=== PATIENT | female | born 1950 | race Caucasian/White ===

== ENCOUNTER → 2017-09-29 | Outpatient (CLI) | payer MEDICARE, OTHER ==
[~2017-09-29] MED LIST: AMIO200T42 PO; AMLO5TAB2 PO; ASPI-515 PO; ATOR40TA78 PO; BISA10SU65 PR; CHOL40002 PO; DICLOFENAC SODIUM; DULO30CA2 PO; HEPA50002 SQ; HYDR-3245 PO; HYDR-3307 PO; INSU100I18 SQ-INSULIN; KETOCONAZOLE TP; LEVO150T5 PO; LEVO175T5 PO; LISI40TA PO; MAGNESIUM PO; METF500T4 PO; METH4TAB7 PO; METH750T2 PO; OMEG1CAP23 PO; OMEP40CA6 PO; ONDA4VIA4 PO; POLY17PO5 PO; SENN1TAB7 PO; SIME125T10 PO; SODI1TAB PO; STOOL SOFTENER PO; TEMA15CA6 PO; TRIAMCINOLONE TP; VIT1CAPS11 PO; VITA PULSE PO
== END | disposition home or self-care (01) ==
LOC: CVU 06:58
PROVIDERS: ATTEND Internal Medicine
DX: M25.561 Pain in right knee (principal); M25.562 Pain in left knee; I10 Essential (primary) hypertension; I48.91 Unspecified atrial fibrillation; E11.40 Type 2 diabetes mellitus with diabetic neuropathy, unspecified; I73.00 Raynaud's syndrome without gangrene
CPT/HCPCS: 93922

== ENCOUNTER 2018-02-14 11:46 | Emergency (ER) | payer MEDICARE, OTHER ==
[~2018-02-14] VITALS: Ht 157.5 cm; Wt 59.0 kg
[~2018-02-14 11:46] MED LIST changes: -METF500T4 PO; +METF500T5 PO
[2018-02-14 12:47] LABS: BASOPHILS # (AUTO) 0.03 x10^3/uL (0-0.1); BASOPHILS % (AUTO) 0 % (0-1); EOSINOPHILS # (AUTO) 0.27 x10^3/uL (0-0.4); EOSINOPHILS % (AUTO) 4 % (1-7); LYMPHOCYTES # (AUTO) 0.85 x10^3/uL (1-3.4); LYMPHOCYTES % (AUTO) 13 % (22-44); MD NO; MEAN CORPUSCULAR HEMOGLOBIN 30.9 pg (27.0-34.8); MEAN CORPUSCULAR HGB CONC 32.9 g/dL (32.4-35.8); MEAN CORPUSCULAR VOLUME 93.9 fL (80-100); MEAN PLATELET VOLUME 8.1 fL (7.4-10.4); MONOCYTES # (AUTO) 0.93 x10^3/uL (0.2-0.8); MONOCYTES % (AUTO) 14 % (2-9); NEUTROPHILS # (AUTO) 4.41 x10^3/uL (1.8-6.8); NEUTROPHILS % (AUTO) 68 % (42-75); PLATELET COUNT 299 x10^3/uL (130-400); RED CELL DISTRIBUTION WIDTH 15.6 % (9.6-15.2)
[2018-02-14 12:59] LABS: ALANINE AMINOTRANSFERASE 25 U/L (12-78); ALBUMIN 2.9 g/dL (3.4-5.0); ANION GAP 6 mmol/L (5-15); CALCIUM 8.9 mg/dL (8.5-10.1); CHLORIDE 107 mmol/L (98-107); CREATININE 0.64 mg/dL (0.55-1.02)
[2018-02-14 13:02] VITALS: BP 160/84
[2018-02-14 13:04] LABS: ALKALINE PHOSPHATASE 75 U/L (45-117); BILIRUBIN,TOTAL 0.5 mg/dL (0.2-1.0); TOTAL PROTEIN 7.9 g/dL (6.4-8.2); TROPONIN I 0.044 ng/mL (0.000-0.045)
== END 2018-02-14 15:11 | disposition home or self-care (01) ==
LOC: ED 15:00
DX: I10 Essential (primary) hypertension (principal); E11.40 Type 2 diabetes mellitus with diabetic neuropathy, unspecified; E03.9 Hypothyroidism, unspecified
CPT/HCPCS: 36415; 71045; 80053; 83880; 84484; 85025; 93005; 99285

== ENCOUNTER → 2018-02-23 | Outpatient (CLI) | payer MEDICARE, OTHER | END | disposition home or self-care (01) | LOC: WOUND 10:08 | PROVIDERS: ATTEND Family Medicine | DX: L02.416 Cutaneous abscess of left lower limb (principal); I10 Essential (primary) hypertension; M32.9 Systemic lupus erythematosus, unspecified; E78.5 Hyperlipidemia, unspecified; E03.9 Hypothyroidism, unspecified; E11.40 Type 2 diabetes mellitus with diabetic neuropathy, unspecified; Z87.891 Personal history of nicotine dependence | CPT/HCPCS: 10061; G0463; WOU0463 ==

== ENCOUNTER → 2018-03-30 | Outpatient (CLI) | payer MEDICARE, OTHER | END | disposition home or self-care (01) | LOC: WOUND 08:52 | PROVIDERS: ATTEND Family Medicine | DX: L02.416 Cutaneous abscess of left lower limb (principal); E11.42 Type 2 diabetes mellitus with diabetic polyneuropathy; E87.1 Hypo-osmolality and hyponatremia; E78.5 Hyperlipidemia, unspecified; E03.9 Hypothyroidism, unspecified; I10 Essential (primary) hypertension; M32.9 Systemic lupus erythematosus, unspecified; I73.00 Raynaud's syndrome without gangrene; Z87.891 Personal history of nicotine dependence | CPT/HCPCS: G0463; WOU0463 ==

== ENCOUNTER → 2018-03-30 | Outpatient (CLI) | payer MEDICARE, OTHER | END | disposition home or self-care (01) | LOC: CFH 13:14 | PROVIDERS: ATTEND Internal Medicine | DX: R60.9 Edema, unspecified (principal) | CPT/HCPCS: 76536 ==

== ENCOUNTER → 2018-04-03 | Outpatient (CLI) | payer MEDICARE, OTHER | END | disposition home or self-care (01) | LOC: WOUND 08:00 | PROVIDERS: ATTEND Nurse Practitioner Family | DX: L02.416 Cutaneous abscess of left lower limb (principal); E11.8 Type 2 diabetes mellitus with unspecified complications; E11.42 Type 2 diabetes mellitus with diabetic polyneuropathy; E87.1 Hypo-osmolality and hyponatremia; E03.9 Hypothyroidism, unspecified; E87.5 Hyperkalemia; I10 Essential (primary) hypertension; M32.9 Systemic lupus erythematosus, unspecified; I73.00 Raynaud's syndrome without gangrene; Z87.891 Personal history of nicotine dependence | CPT/HCPCS: G0463; WOU0463 ==

== ENCOUNTER → 2018-04-13 | Outpatient (CLI) | payer MEDICARE, OTHER ==
[~2018-04-13] MED LIST changes: -AMLO5TAB2 PO; +AMLO5TAB7 PO; +METF500T17 PO; -METF500T5 PO; -ONDA4VIA4 PO; +ONDA4VIA8 PO; -SENN1TAB7 PO; +SENN1TAB8 PO
== END | disposition home or self-care (01) ==
LOC: CFH 13:37
PROVIDERS: ATTEND Internal Medicine Cardiovascular Disease
DX: I08.3 Combined rheumatic disorders of mitral, aortic and tricuspid valves (principal); I11.9 Hypertensive heart disease without heart failure; E11.9 Type 2 diabetes mellitus without complications; E78.5 Hyperlipidemia, unspecified; Z87.891 Personal history of nicotine dependence
CPT/HCPCS: 93306

== ENCOUNTER 2018-04-15 07:35 | Inpatient (IN) | payer MEDICARE, OTHER ==
[~2018-04-15] VITALS: Ht 154.9 cm; Wt 66.5 kg
[2018-04-15] MEDS ORDERED: ONDANSETRON ODT 4 MG PO ONE (09:00)
[2018-04-15] MEDS ORDERED: SODIUM CHLORIDE FLUSH 10ML SYR IVF ONE ×2 (09:00→13:00)
[2018-04-15] MEDS ORDERED: ONDANSETRON ODT 4 MG ONE (09:02)
[2018-04-15 09:45] LABS: MEAN CORPUSCULAR HEMOGLOBIN 30.5 pg (27.0-34.8); MEAN CORPUSCULAR HGB CONC 33.4 g/dL (32.4-35.8); MEAN CORPUSCULAR VOLUME 91.2 fL (80-100); MEAN PLATELET VOLUME 8.6 fL (7.4-10.4); PLATELET COUNT 128 x10^3/uL (130-400); RED BLOOD COUNT 4.03 x10^6/uL (3.82-5.3); RED CELL DISTRIBUTION WIDTH 15.8 % (9.6-15.2)
[2018-04-15 09:55] LABS: MICROSCOPIC INDICATED
[2018-04-15 09:57] LABS: ALANINE AMINOTRANSFERASE 10 U/L (12-78); ALBUMIN 2.9 g/dL (3.4-5.0); ANION GAP 8 mmol/L (5-15); CALCIUM 8.6 mg/dL (8.5-10.1); CHLORIDE 101 mmol/L (98-107); CREATININE 1.31 mg/dL (0.55-1.02)
[2018-04-15 10:00] LABS: ALKALINE PHOSPHATASE 86 U/L (45-117); BILIRUBIN,TOTAL 0.8 mg/dL (0.2-1.0); TOTAL PROTEIN 7.1 g/dL (6.4-8.2)
[2018-04-15 10:06] LABS: BASOPHILS # (AUTO) 0.02 x10^3/uL (0-0.1); BASOPHILS % (AUTO) 0 % (0-1); EOSINOPHILS % (AUTO) 1 % (1-7); LYMPHOCYTES # (AUTO) 0.81 x10^3/uL (1-3.4); LYMPHOCYTES % (AUTO) 8 % (22-44); MD SCAN; MONOCYTES # (AUTO) 1.46 x10^3/uL (0.2-0.8); MONOCYTES % (AUTO) 15 % (2-9); NEUTROPHILS # (AUTO) 7.37 x10^3/uL (1.8-6.8); NEUTROPHILS % (AUTO) 76 % (42-75)
[2018-04-15 10:10] LABS: CULTURE INDICATED? YES
[2018-04-15] MEDS ORDERED: OMNIPAQUE 350 MG/ML, 100ML BOTTLE ONE (12:25)
[2018-04-15] MEDS ORDERED: CEFOTETAN PMX 1GM/50ML 50 ML ONE (12:56)
[2018-04-15] MEDS ORDERED: CEFOTETAN PMX 1GM/50ML 50 ML IV ONE (13:00)
[2018-04-15] MEDS ORDERED: SODIUM CHLORIDE 0.9% 1,000ML IVBOLUS ONE (13:00)
[2018-04-15] MEDS ORDERED: METRONIDAZOLE PMX 500MG/100ML 100 ML IV ONE (13:00)
[2018-04-15] MEDS ORDERED: GLUCAGON 1 MG IM PRN (14:00)
[2018-04-15] MEDS ORDERED: POLYETHYLENE GLYCOL 17 GM PACKET PO PRN (14:00)
[2018-04-15] MEDS ORDERED: PHARMACY MAY ADJ FOR RENAL FX MC PRN (14:00)
[2018-04-15] MEDS ORDERED: BISACODYL 10 MG SUPP PR PRN (14:00)
[2018-04-15] MEDS ORDERED: ONDANSETRON 2MG/ML, 2ML IVPush PRN (14:00)
[2018-04-15] MEDS ORDERED: DEXTROSE 50%, 50ML SYRINGE IVPush PRN (14:00)
[2018-04-15] MEDS ORDERED: DEXTROSE 4 GM TAB.CHEW PO PRN (14:00)
[2018-04-15] MEDS ORDERED: ACETAMINOPHEN 325 MG TABLET PO PRN (14:00)
[2018-04-15] MEDS ORDERED: DOCUSATE 100 MG CAPSULE PO PRN (14:00)
[2018-04-15] MEDS ORDERED: morphine SULFATE 10 MG/ML, 1ML IVPush PRN (14:00)
[2018-04-15 14:17] VITALS: BP 183/96
[2018-04-15] MEDS: hydrALAzine 20 MG/ML, 1ML IVPush PRN (14:39)
[2018-04-15] MEDS: METRONIDAZOLE PMX 500MG/100ML 100 ML IV SCH ×2 (14:40→22:17)
[2018-04-15] MEDS: SODIUM CHLORIDE 0.9% 1,000 ML IV SCH ×2 (14:40→22:17)
[2018-04-15] MEDS: HEPARIN 5,000 UNITS/ML, 1ML SQ SCH ×2 (14:53→22:17)
[2018-04-15 16:00] VITALS: BP 158/93
[2018-04-15] MEDS: INSULIN LISPRO 100 UNITS/ML, PEN SQ-INSULIN SCH ×2 (16:00→20:19)
[2018-04-15] MEDS: CEFOTETAN PMX 2GM/50ML 50 ML IV SCH (17:33)
[2018-04-15] MEDS: HYDROcodone/APAP 5/325 TABLET PO PRN (19:17)
[2018-04-15 20:00] VITALS: BP 183/99
[2018-04-15] MEDS: ATORVASTATIN 40 MG TABLET PO SCH (20:18)
[2018-04-15] MEDS: ONDANSETRON ODT 4 MG PO PRN (20:18)
[2018-04-15] MEDS: SODIUM CHLORIDE FLUSH 10ML SYR IVF SCH (20:19)
[2018-04-15 22:18] VITALS: BP 158/86
[2018-04-15 23:14] LABS: CLOSTRIDIUM DIFFICILE TOXIN NEGATIVE (Negative)
[2018-04-15 23:15] LABS: CLOSTRIDIUM DIFFICILE ANTIGEN POSITIVE
[2018-04-16] VITALS (7 sets, daily range): BP systolic 149–177; BP diastolic 75–100
[2018-04-16] MEDS: CEFOTETAN PMX 2GM/50ML 50 ML IV SCH ×2 (05:03→17:10)
[2018-04-16 05:09] LABS: ALBUMIN 2.5 g/dL (3.4-5.0); ANION GAP 7 mmol/L (5-15); CALCIUM 7.7 mg/dL (8.5-10.1); CHLORIDE 105 mmol/L (98-107)
[2018-04-16 05:14] LABS: ALANINE AMINOTRANSFERASE 9 U/L (12-78); ALKALINE PHOSPHATASE 74 U/L (45-117); BILIRUBIN,TOTAL 0.6 mg/dL (0.2-1.0); TOTAL PROTEIN 6.1 g/dL (6.4-8.2)
[2018-04-16] MEDS: METRONIDAZOLE PMX 500MG/100ML 100 ML IV SCH ×3 (05:52→21:02)
[2018-04-16] MEDS: HEPARIN 5,000 UNITS/ML, 1ML SQ SCH ×3 (05:52→22:00)
[2018-04-16] MEDS ORDERED: LEVOTHYROXINE 125 MCG TABLET PO SCH (06:00)
[2018-04-16 06:05] LABS: MEAN CORPUSCULAR HEMOGLOBIN 30.8 pg (27.0-34.8); MEAN CORPUSCULAR HGB CONC 33.9 g/dL (32.4-35.8); MEAN CORPUSCULAR VOLUME 90.7 fL (80-100); MEAN PLATELET VOLUME 8.8 fL (7.4-10.4); PLATELET COUNT 99 x10^3/uL (130-400); RED CELL DISTRIBUTION WIDTH 16.5 % (9.6-15.2)
[2018-04-16 06:06] LABS: BASOPHILS # (AUTO) 0.02 x10^3/uL (0-0.1); BASOPHILS % (AUTO) 0 % (0-1); EOSINOPHILS # (AUTO) 0.36 x10^3/uL (0-0.4); EOSINOPHILS % (AUTO) 4 % (1-7); LYMPHOCYTES # (AUTO) 0.31 x10^3/uL (1-3.4); LYMPHOCYTES % (AUTO) 4 % (22-44); MD SCAN; MONOCYTES # (AUTO) 1.03 x10^3/uL (0.2-0.8); MONOCYTES % (AUTO) 13 % (2-9); NEUTROPHILS # (AUTO) 6.49 x10^3/uL (1.8-6.8); NEUTROPHILS % (AUTO) 79 % (42-75)
[2018-04-16] MEDS: INSULIN LISPRO 100 UNITS/ML, PEN SQ-INSULIN SCH ×3 (07:28→16:00)
[2018-04-16] MEDS: AMLODIPINE 5 MG TABLET PO SCH (07:34)
[2018-04-16] MEDS: SODIUM CHLORIDE 0.9% 1,000 ML IV SCH ×2 (07:34→19:27)
[2018-04-16] MEDS: hydrALAzine 20 MG/ML, 1ML IVPush PRN (07:34)
[2018-04-16] MEDS: SODIUM CHLORIDE FLUSH 10ML SYR IVF SCH ×2 (08:29→19:28)
[2018-04-16] MEDS ORDERED: AMLODIPINE 5 MG TABLET PO SCH (09:00)
[2018-04-16] MEDS: HYDROcodone/APAP 5/325 TABLET PO PRN ×2 (09:31→21:02)
[2018-04-16] MEDS: CARVEDILOL 3.125 MG TABLET PO SCH (17:10)
[2018-04-16] MEDS: ATORVASTATIN 40 MG TABLET PO SCH (19:27)
[2018-04-17 02:27] VITALS: BP 143/92
[2018-04-17] MEDS: CEFOTETAN PMX 2GM/50ML 50 ML IV SCH (04:48)
[2018-04-17 05:38] LABS: MEAN CORPUSCULAR HEMOGLOBIN 30.7 pg (27.0-34.8); MEAN CORPUSCULAR HGB CONC 33.7 g/dL (32.4-35.8); RED BLOOD COUNT 3.21 x10^6/uL (3.82-5.3); RED CELL DISTRIBUTION WIDTH 16.5 % (9.6-15.2)
[2018-04-17] MEDS: SODIUM CHLORIDE 0.9% 1,000 ML IV SCH (05:41)
[2018-04-17] MEDS: HYDROcodone/APAP 5/325 TABLET PO PRN ×3 (05:41→22:02)
[2018-04-17] MEDS: HEPARIN 5,000 UNITS/ML, 1ML SQ SCH ×3 (05:41→22:02)
[2018-04-17] MEDS: CARVEDILOL 3.125 MG TABLET PO SCH ×2 (05:42→18:31)
[2018-04-17] MEDS: LEVOTHYROXINE 150 MCG TABLET PO SCH (05:42)
[2018-04-17] MEDS: METRONIDAZOLE PMX 500MG/100ML 100 ML IV SCH ×3 (05:42→22:02)
[2018-04-17 05:44] LABS: ANION GAP 8 mmol/L (5-15); CALCIUM 7.7 mg/dL (8.5-10.1); CHLORIDE 104 mmol/L (98-107)
[2018-04-17 06:09] LABS: BASOPHILS # (AUTO) 0.01 x10^3/uL (0-0.1); BASOPHILS % (AUTO) 0 % (0-1); EOSINOPHILS # (AUTO) 0.61 x10^3/uL (0-0.4); EOSINOPHILS % (AUTO) 7 % (1-7); LYMPHOCYTES % (AUTO) 6 % (22-44); MD SCAN; MEAN PLATELET VOLUME 9.6 fL (7.4-10.4); MONOCYTES # (AUTO) 1.14 x10^3/uL (0.2-0.8); MONOCYTES % (AUTO) 13 % (2-9); NEUTROPHILS # (AUTO) 6.38 x10^3/uL (1.8-6.8); NEUTROPHILS % (AUTO) 74 % (42-75); PLATELET COUNT 91 x10^3/uL (130-400)
[2018-04-17 07:00] VITALS: BP 157/97
[2018-04-17] MEDS: AMLODIPINE 5 MG TABLET PO SCH (08:42)
[2018-04-17] MEDS: SODIUM CHLORIDE FLUSH 10ML SYR IVF SCH ×2 (08:44→22:03)
[2018-04-17 13:39] VITALS: BP 180/101
[2018-04-17] MEDS: CEFTRIAXONE 1,000 MG in SODIUM CHLORIDE 0.9% 50 ML IV SCH (15:11)
[2018-04-17] MEDS: hydrALAzine 20 MG/ML, 1ML IVPush PRN (15:11)
[2018-04-17] MEDS: LABETALOL 5MG/ML, 20ML IVPush PRN (18:31)
[2018-04-17 21:17] VITALS: BP 149/95
[2018-04-17] MEDS: ATORVASTATIN 40 MG TABLET PO SCH (22:02)
[2018-04-18 02:26] VITALS: BP 174/97
[2018-04-18] MEDS: LABETALOL 5MG/ML, 20ML IVPush PRN (02:36)
[2018-04-18 04:59] VITALS: BP 145/88
[2018-04-18] MEDS: METRONIDAZOLE PMX 500MG/100ML 100 ML IV SCH ×3 (06:21→22:48)
[2018-04-18] MEDS: HEPARIN 5,000 UNITS/ML, 1ML SQ SCH ×3 (06:21→22:48)
[2018-04-18] MEDS: CARVEDILOL 3.125 MG TABLET PO SCH ×2 (06:22→19:36)
[2018-04-18] MEDS: LEVOTHYROXINE 150 MCG TABLET PO SCH (06:23)
[2018-04-18 07:38] VITALS: BP 155/99
[2018-04-18] MEDS ORDERED: CARVEDILOL 3.125 MG TABLET PO ONE (08:00)
[2018-04-18] MEDS: LIOTHYRONINE 5 MCG TABLET PO SCH (09:19)
[2018-04-18] MEDS: AMLODIPINE 5 MG TABLET PO SCH (09:19)
[2018-04-18] MEDS: SODIUM CHLORIDE FLUSH 10ML SYR IVF SCH ×2 (09:20→19:36)
[2018-04-18] MEDS: VANCOMYCIN 50 MG/ML ORAL SUSP PO SCH ×3 (11:06→22:48)
[2018-04-18 15:50] VITALS: BP 161/96
[2018-04-18] MEDS: CEFTRIAXONE 1,000 MG in SODIUM CHLORIDE 0.9% 50 ML IV SCH (17:00)
[2018-04-18 19:13] VITALS: BP 164/103
[2018-04-18] MEDS: HYDROcodone/APAP 5/325 TABLET PO PRN (20:12)
[2018-04-18] MEDS: ATORVASTATIN 40 MG TABLET PO SCH (20:12)
[2018-04-18] MEDS: ONDANSETRON ODT 4 MG PO PRN (20:12)
[2018-04-18 22:40] VITALS: BP 155/93
[2018-04-19 02:03] VITALS: BP 174/102
[2018-04-19] MEDS: hydrALAzine 20 MG/ML, 1ML IVPush PRN (02:20)
[2018-04-19] MEDS: HYDROcodone/APAP 5/325 TABLET PO PRN (04:12)
[2018-04-19 04:15] VITALS: BP 164/96
[2018-04-19] MEDS: VANCOMYCIN 50 MG/ML ORAL SUSP PO SCH ×2 (05:08→11:26)
[2018-04-19] MEDS: LEVOTHYROXINE 150 MCG TABLET PO SCH (05:08)
[2018-04-19 05:16] LABS: ANION GAP 9 mmol/L (5-15); CALCIUM 7.9 mg/dL (8.5-10.1); CHLORIDE 105 mmol/L (98-107); CREATININE 1.11 mg/dL (0.55-1.02)
[2018-04-19 06:19] VITALS: BP 157/93
[2018-04-19] MEDS: HEPARIN 5,000 UNITS/ML, 1ML SQ SCH ×2 (06:20→14:12)
[2018-04-19] MEDS: CARVEDILOL 3.125 MG TABLET PO SCH (06:21)
[2018-04-19] MEDS: METRONIDAZOLE PMX 500MG/100ML 100 ML IV SCH ×2 (06:21→14:11)
[2018-04-19 06:39] VITALS: BP 149/92
[2018-04-19] MEDS: AMLODIPINE 5 MG TABLET PO SCH (10:04)
[2018-04-19] MEDS: LIOTHYRONINE 5 MCG TABLET PO SCH (10:04)
[2018-04-19] MEDS: SODIUM CHLORIDE FLUSH 10ML SYR IVF SCH (10:05)
[2018-04-19 12:02] VITALS: BP 154/89
[2018-04-19] MEDS ORDERED: LIOT5TAB3 PO (13:43)
[2018-04-19] MEDS ORDERED: CARV3.1212 PO (13:43)
[2018-04-19] MEDS ORDERED: HYDR-3341 PO (13:43)
[2018-04-19] MEDS ORDERED: CEFD300C37 PO (13:43)
[2018-04-19] MEDS ORDERED: VANC125C11 PO (13:43)
[2018-04-19] MEDS ORDERED: AMLO5TAB7 PO (13:43)
[2018-04-19] MEDS ORDERED: LEVO150T PO (13:43)
[2018-04-19] MEDS ORDERED: METR500T8 PO (13:43)
== END 2018-04-19 15:57 | disposition home health service (06) | DRG 371 ==
LOC: ED 10:31 → EDIP 12:54 → 3NE 13:39
PROVIDERS: ADMIT Hospitalist; ATTEND Hospitalist
DX: A04.72 Enterocolitis due to Clostridium difficile, not specified as recurrent (principal); N17.0 Acute kidney failure with tubular necrosis; I50.40 Unspecified combined systolic (congestive) and diastolic (congestive) heart failure; N39.0 Urinary tract infection, site not specified; I11.0 Hypertensive heart disease with heart failure; E03.9 Hypothyroidism, unspecified; E11.9 Type 2 diabetes mellitus without complications; E78.5 Hyperlipidemia, unspecified; E86.0 Dehydration; I27.20 Pulmonary hypertension, unspecified; Z82.49 Family history of ischemic heart disease and other diseases of the circulatory system; Z83.3 Family history of diabetes mellitus; Z96.653 Presence of artificial knee joint, bilateral; Z90.49 Acquired absence of other specified parts of digestive tract
CPT/HCPCS: 36415; 74021; 74177; 80048; 80053; 81001; 82962; 83631; 83735; 83880; 84100; 85025; 87040; 87046; 87077; 87086; 87186; 87324; 87427; 87493; 89055; 93005; 96374; 99285; G0378; J0696; J1644; J3370; Q0162; Q9967; J0360; J2270; J7030; S0074

== ENCOUNTER 2018-04-20 18:48 | Emergency (ER) | payer MEDICARE, OTHER ==
[~2018-04-20] VITALS: Ht 154.9 cm; Wt 64.7 kg
[~2018-04-20 18:48] MED LIST changes: +CARV3.1212 PO; +CEFD300C37 PO; +HYDR-3341 PO; +LEVO150T PO; +LIOT5TAB3 PO; +METR500T8 PO; +VANC125C11 PO
[2018-04-20 19:27] LABS: ALANINE AMINOTRANSFERASE 11 U/L (12-78); ALBUMIN 2.7 g/dL (3.4-5.0); ANION GAP 12 mmol/L (5-15); CALCIUM 8.6 mg/dL (8.5-10.1); CHLORIDE 103 mmol/L (98-107); CREATININE 1.48 mg/dL (0.55-1.02)
[2018-04-20 19:29] LABS: ALKALINE PHOSPHATASE 78 U/L (45-117); BILIRUBIN,TOTAL 0.7 mg/dL (0.2-1.0); TOTAL PROTEIN 6.8 g/dL (6.4-8.2)
[2018-04-20 19:58] LABS: MEAN CORPUSCULAR HEMOGLOBIN 29.2 pg (27.0-34.8); MEAN CORPUSCULAR HGB CONC 32.7 g/dL (32.4-35.8); MEAN CORPUSCULAR VOLUME 89.5 fL (80-100); MEAN PLATELET VOLUME 9.7 fL (7.4-10.4); PLATELET COUNT 138 x10^3/uL (130-400); RED BLOOD COUNT 3.97 x10^6/uL (3.82-5.3); RED CELL DISTRIBUTION WIDTH 17.2 % (9.6-15.2)
[2018-04-20 20:01] LABS: MD YES
[2018-04-20 20:02] LABS: ANISOCYTOSIS 1+; EOS#(MANUAL) 0.08 x10^3/uL (0.0-0.4); EOS% (MANUAL) 1 % (1-7); LYMPH#(MANUAL) 1.08 x10^3/uL (1-3.4); LYMPHS% (MANUAL) 13 % (22-44); MONOS#(MANUAL) 0.33 x10^3/uL (0.3-2.7); MONOS% (MANUAL) 4 % (2-9); SEG#(MANUAL) 6.81 x10^3/uL (1.8-6.8); SEGS% (MANUAL) 82 % (42-75)
[2018-04-20 20:03] LABS: <PLATELET ESTIMATE> ADEQUATE; LARGE PLATELETS 1+; POLYCHROMASIA 1+; SCHISTOCYTES 1+
[2018-04-20 22:13] VITALS: BP 165/100
[2018-04-21] MEDS ORDERED: CARVEDILOL 6.25 MG TABLET PO SCH (06:00)
== END 2018-04-20 22:16 | disposition home or self-care (01) ==
LOC: ED 22:10
DX: I10 Essential (primary) hypertension (principal); Z87.891 Personal history of nicotine dependence; E11.9 Type 2 diabetes mellitus without complications; E03.9 Hypothyroidism, unspecified
CPT/HCPCS: 36415; 80053; 85025; 93005; 99285